=== PATIENT | female | born 1965 | race Caucasian/White ===

== ENCOUNTER → 2017-02-17 | Outpatient (CLI) | payer OTHER | LOC: COL.RAD 13:40 | DX: M25.571 Pain in right ankle and joints of right foot (principal); R93.7 Abnormal findings on diagnostic imaging of other parts of musculoskeletal system ==

== ENCOUNTER → 2020-10-04 | Outpatient (CLI) | payer OTHER | LOC: COL.RAD 12:30 | DX: R06.00 Dyspnea, unspecified (principal) ==